=== PATIENT | female | born 1950 | race Caucasian/White ===

== ENCOUNTER 2018-06-01 05:42 | Emergency (ER) | payer OTHER ==
[~2018-06-01] VITALS: Ht 160 cm; Wt 59.9 kg
[2018-06-01] MEDS ORDERED: ROCALTROL0.25 MCG (06:07)
[2018-06-01] MEDS ORDERED: FENOFIBRATE160 MG (06:07)
[2018-06-01] MEDS ORDERED: OMEPRAZOLE20 M1 (06:07)
[2018-06-01] MEDS ORDERED: SIMVASTATIN10 MG (06:08)
[2018-06-01] MEDS ORDERED: VERAPAMIL ER240 MG (06:08)
[2018-06-01] MEDS ORDERED: METFORMIN HCL500 MG (06:08)
[2018-06-01] MEDS ORDERED: VASOTEC10 MG (06:09)
[2018-06-01] MEDS ORDERED: CIPRO500 MG PO ×2 (15:49→15:52)
[2018-06-01] MEDS ORDERED: ULTRAM50 MG PO ×2 (15:50→15:52)
[2018-06-01] MEDS ORDERED: INTESTINEX680 M1 PO ×2 (15:51→15:52)
[2018-06-01] MEDS ORDERED: FLAGYL500MG PO (15:52)
== END 2018-06-01 16:17 | disposition home or self-care (01) ==
LOC: ER 05:42
DX: K57.92 Diverticulitis of intestine, part unspecified, without perforation or abscess without bleeding (principal); R10.2 Pelvic and perineal pain

== ENCOUNTER 2018-06-25 13:18 | Emergency (ER) | payer OTHER ==
[~2018-06-25] VITALS: Ht 157.5 cm; Wt 55.8 kg
[~2018-06-25 13:18] MED LIST: CIPRO500 MG PO; FENOFIBRATE160 MG; FLAGYL500MG PO; INTESTINEX680 M1 PO; METFORMIN HCL500 MG; OMEPRAZOLE20 M1; ROCALTROL0.25 MCG; SIMVASTATIN10 MG; ULTRAM50 MG PO; VASOTEC10 MG; VERAPAMIL ER240 MG
[2018-06-25] MEDS ORDERED: LEVSIN/SL0.125 MG SL (21:13)
[2018-06-25] MEDS ORDERED: INTESTINEX680 M1 PO (21:13)
== END 2018-06-25 21:27 | disposition home or self-care (01) ==
LOC: ER 13:18
DX: K57.30 Diverticulosis of large intestine without perforation or abscess without bleeding (principal); C18.7 Malignant neoplasm of sigmoid colon; R10.2 Pelvic and perineal pain

== ENCOUNTER 2019-02-22 07:59 | Outpatient (CLI) | payer OTHER ==
[~2019-02-22 07:59] MED LIST changes: +LEVSIN/SL0.125 MG SL
== END 2019-02-22 08:21 | disposition home or self-care (01) ==
LOC: SONOGRAMA 07:59
DX: N63.20 Unspecified lump in the left breast, unspecified quadrant (principal)

== ENCOUNTER 2019-08-11 11:10 | Emergency (ER) | payer OTHER ==
[~2019-08-11] VITALS: Ht 157.5 cm; Wt 54.4 kg
[2019-08-11] MEDS ORDERED: ROCALTROL0.25 MCG (11:28)
[2019-08-11] MEDS ORDERED: IBRANCE125 MG (11:28)
[2019-08-11] MEDS ORDERED: LIPOFEN150 MG (11:29)
[2019-08-11] MEDS ORDERED: ONDANSETRON ODT8 MG (11:29)
[2019-08-11] MEDS ORDERED: SKELAXIN800 MG PO (16:19)
[2019-08-11] MEDS ORDERED: PEPCID AC20 MG PO (16:19)
[2019-08-11] MEDS ORDERED: VOLTAREN-XR100 MG PO (16:19)
== END 2019-08-11 16:57 | disposition home or self-care (01) ==
LOC: ER 11:10
DX: M54.42 Lumbago with sciatica, left side (principal); M54.41 Lumbago with sciatica, right side; C79.81 Secondary malignant neoplasm of breast

== ENCOUNTER 2020-06-17 13:50 | Inpatient (IN) | payer OTHER ==
[~2020-06-17] VITALS: Ht 160 cm; Wt 54.4 kg
[~2020-06-17 13:50] MED LIST changes: +IBRANCE125 MG; +LIPOFEN150 MG; +ONDANSETRON ODT8 MG; +PEPCID AC20 MG PO; +SKELAXIN800 MG PO; +VOLTAREN-XR100 MG PO
[2020-06-17] MEDS ORDERED: GABAPENTIN300 M2 PO (14:04)
[2020-06-17] MEDS ORDERED: FUROSEMIDE40 MG PO (14:04)
[2020-06-17] MEDS ORDERED: OXYC1TAB9 PO (14:04)
--- NOTE | 2020-06-17 14:10 | NUR ---
SE RECIBE PACIENTE ALERTA, ORIENTADA X 3 EESFERAS ACOMPANADA CON HOLLY HIJA PTE. HX.METASTASIS CANCER. HIJA REFIRE QUE LA HIMA POR QUE ESTA RETENIENDO LIQUIDO, SE SIENTE CON DIFICULTAD RESPIRATORIA, NAUSEAS. SE OBSERVAN AREAS DE EXTREMIDADES CON EDEMA, SE RELIZA EKG SE PRESENTA A NEIL.SRINIVAS SE REALIZA DEXTROS 191
--- NOTE | 2020-06-17 15:51 | NUR ---
PTE ES EVALUADA POR NEIL. RENTA QUIEN ORDENA TRATAMIENTO. SE EDUCA A PTE SOBRE ORDENES MEDICAS Y REFIERE COMPRENDER. PTE CANALIZADA PREVIAMENTE POR MS. Phylicia CHAVEZ EN ANTECUBITAL R+ CON ANGIO #20. EL MISMO SE OBSERVA PATENTE Y GRISELDA DE EDEMA Y/O ENROJECIMIENTO. PTE PRESENTA BUEN PATRON RESPIRATORIO CON PIEL TIBIA AL TACTO. SE COLECTAN MUESTRAS DE LABORATORIO BAJO MEDIDAS ASEPTICAS Y SE INSERTA SONDA URINARIA BAJO MEDIDAS ESTERILES. SE ADMINISTRA LASIX 40 MH IV PUSH THOMAS ORDEN MEDICA. PTE REFIERE DOLOR EN HOMBRO L+, SE USAMA COMPRESAS DE HIELO Y SE NOTIFICA DOLOR A NEIL.
== END 2020-06-29 07:33 | disposition expired | DRG 187 ==
LOC: ER 13:50 → SEC-K 19:42 → MEDI 19:42
PROVIDERS: ADMIT Internal Medicine; ATTEND Internal Medicine
PROC: 4A033R1 Measurement of Arterial Saturation, Peripheral, Percutaneous Approach (ICD-10-PCS; 2020-06-17)
PROC: 3E0F7SF Introduction of Other Gas into Respiratory Tract, Via Natural or Artificial Opening (ICD-10-PCS; principal; 2020-06-20)
PROC: B24BZZZ Ultrasonography of Heart with Aorta (ICD-10-PCS; 2020-06-20)
PROC: 0W993ZX Drainage of Right Pleural Cavity, Percutaneous Approach, Diagnostic (ICD-10-PCS; 2020-06-22)
PROC: 0W9G3ZX Drainage of Peritoneal Cavity, Percutaneous Approach, Diagnostic (ICD-10-PCS; 2020-06-24)
PROC: 0W993ZZ Drainage of Right Pleural Cavity, Percutaneous Approach (ICD-10-PCS; 2020-06-26)
DX: J90 Pleural effusion, not elsewhere classified (principal); C79.51 Secondary malignant neoplasm of bone; C77.3 Secondary and unspecified malignant neoplasm of axilla and upper limb lymph nodes; E87.2 Acidosis; N17.8 Other acute kidney failure; R18.8 Other ascites; C78.7 Secondary malignant neoplasm of liver and intrahepatic bile duct; C50.919 Malignant neoplasm of unspecified site of unspecified female breast; Z20.822 Contact with and (suspected) exposure to COVID-19; E87.70 Fluid overload, unspecified; E11.65 Type 2 diabetes mellitus with hyperglycemia; Z79.4 Long term (current) use of insulin; N18.32 Chronic kidney disease, stage 3b; I10 Essential (primary) hypertension; R74.8 Abnormal levels of other serum enzymes; Z66 Do not resuscitate; E11.22 Type 2 diabetes mellitus with diabetic chronic kidney disease